=== PATIENT | female | born 1965 | race Caucasian/White ===

== ENCOUNTER → 2018-02-05 | Outpatient (CLI) | payer OTHER | LOC: BMCIMAGING 12:40 | PROVIDERS: ATTEND Family Medicine | DX: Z12.31 Encounter for screening mammogram for malignant neoplasm of breast (principal) ==

== ENCOUNTER → 2019-02-07 | Outpatient (CLI) | payer OTHER | LOC: BMCIMAGING 13:33 | PROVIDERS: ATTEND Family Medicine | DX: Z12.31 Encounter for screening mammogram for malignant neoplasm of breast (principal) ==